=== PATIENT | female | born 1975 | race Hispanic/Latino ===

== ENCOUNTER 2020-10-02 16:03 | Outpatient (CLI) | payer OTHER ==
--- NOTE | 2020-10-02 16:27 | RAD ---
XR Chest Pa Lat STANDARD History: Acute bronchitis Comparison: None. Findings: Lungs are clear. No pneumothorax. No effusion. No acute osseous abnormality. Impression: No acute intrathoracic abnormality.
== END 2020-10-02 16:04 | disposition home or self-care (01) ==
LOC: MADRAD 16:03
PROVIDERS: ATTEND Family Medicine
DX: J20.9 Acute bronchitis, unspecified (principal)
CPT/HCPCS: 71046